=== PATIENT | female | born 1985 | race American Indian/Alaskan Native ===

== ENCOUNTER 2018-04-30 12:50 | Emergency (ER) | payer OTHER ==
[2018-04-30 12:50] VITALS: BMI 38.4
[2018-04-30 13:02] VITALS: RESP 18; TEMP 98.2; O2SAT 100
--- NOTE | 2018-04-30 13:54 | C.PDOC ---
History Of Present Illness 32 year old female presents to the emergency department with complaints of left- sided toothache for the last 1 month. Patient states that she has been evaluated by a dentist who prescribed her antibiotics and recommended that she sees an oral surgeon. However, patient states that due to insurance issues, she has been unable to do so. Patient states that she has finished the course of antibiotics, and has no relief with [id number] medications. Patient currently complains of pain to the left cheek area. Time Seen by Provider: 04/30/18 13:26 Chief Complaint (Nursing): Dental Pain History Per: Patient History/Exam Limitations: no limitations Onset/Duration Of Symptoms: Other (one month) Current Symptoms Are (Timing): Worse Quality: Positive for: "Pain" Past Medical History Reviewed: Historical Data, Nursing Documentation, Vital Signs Vital Signs: Last Vital Signs Temp 98.2 F 04/30/18 12:59 Pulse 20 L 04/30/18 12:59 Resp 18 04/30/18 12:59 BP 157/100 H 04/30/18 12:59 Pulse Ox 100 04/30/18 12:59 - Medical History PMH: Anemia, Anxiety, Back Problems, Bipolar Disorder, HTN Denies: Diabetes, Hepatitis, HIV, Seizures, Sexually Transmitted Disease Surgical History: Cholecystectomy, (x2) - [facility] Procedures EXTRACTION OF POC, LOW CERVICAL, OPEN APPROACH (12/06/15) MONITORING OF POC, CARDIAC RATE, [employer]ING ANALYST APPROACH (12/06/15) Family History: States: Diabetes - Social History Hx Alcohol Use: No Hx Substance Use: No - Immunization History Hx Tetanus Toxoid Vaccination: No Hx Influenza Vaccination: No Hx Pneumococcal Vaccination: No Review Of Systems Constitutional: Negative for: Fever, Chills ENT: Positive for: Mouth Pain (left-sided toothache) Physical Exam - Physical Exam Appears: Well, Non-toxic, No Acute Distress Skin: Normal Color, Warm, Dry Head: Atraumatic, Normacephalic Eye(s): bilateral: Normal Inspection, PERRL, EOMI Nose: Normal Oral Mucosa: Moist Gingiva: Swelling (mild gingival swelling), No Abscess, Other (large cavity present to the left upper molar. Good dentition otherwise. ) Throat: Normal, No Erythema, No Exudate Neck: Normal ROM Chest: Symmetrical Extremity: Bilateral: Atraumatic, Normal Color And Temperature, Normal ROM Neurological/Psych: Oriented x3, Normal Speech ED Course And Treatment O2 Sat by Pulse Oximetry: 100 (RA) Pulse Ox Interpretation: Normal Medical Decision Making Medical Decision Making: Plan: Penicillin VK Tab 500mg PO Ultram 50mg PO Disposition Counseled Patient/Family Regarding: Diagnosis, Need For Followup, Rx Given - Disposition Referrals: Angi Kaufman MD [Medical Doctor] - Disposition: HOME/ ROUTINE Disposition Time: 13:52 Condition: GOOD Additional Instructions: Take pain medicine as needed and antibiotic Follow up with dentist Prescriptions: Penicillin VK [Penicillin VK Tab] 1 tab PO BID #20 tab traMADol [Ultram] 50 mg PO Q8 #20 tab Instructions: Dental Pain (DC) Forms: [employer] (Mongolian) - POA Present On Arrival: None - Clinical Impression Clinical Impression: Toothache - PA / DIRECTOR PAID MEDIA / Resident Statement MD/DO has reviewed & agrees with the documentation as recorded. - Scribe Statement The provider has reviewed the documentation as recorded by the Scribe (Derek Galindo) All medical record entries made by the Scribe were at my direction and personally dictated by me. I have reviewed the chart and agree that the record accurately reflects my personal performance of the history, physical exam, medical decision making, and the department course for this patient. I have also personally directed, reviewed, and agree with the discharge instructions and disposition.
[2018-04-30 14:11] VITALS: BP 152/98; PULSE 73
== END 2018-04-30 14:11 | disposition home or self-care (01) ==
LOC: C.ER 12:50
DX: K08.89 Other specified disorders of teeth and supporting structures (principal); I10 Essential (primary) hypertension